=== PATIENT | male | born 1955 | race Caucasian/White ===

== ENCOUNTER 2021-02-08 08:45 | Inpatient (IN) ==
[2021-02-08] MEDS ORDERED: morphine 4 MG/ML VIAL IV ONE (09:30)
[2021-02-08] MEDS ORDERED: ONDANSETRON 4 MG/2 ML VIAL IV ONE (09:30)
--- NOTE | 2021-02-08 09:35 | Emergency Department Note ---
Male Urogenital HPI General Chief complaint: Urogenital-Male Stated complaint: Hematuria Time Seen by Provider: 02/08/21 09:07 Source: patient and family Mode of arrival: wheelchair Limitations: no limitations History of Present Illness HPI Narrative: Narrative: Presents from T7 for evaluation of bladder pain and he maturia. The patient initially had cystoscopy on 01/16/2021 at outside facility. The patient had done well postoperatively until 2 days ago when he developed pain and hematuria. He initially was seen at the clinic and submitted a urine sample but is unsure as to what the next plan was. The patient was seen in the emergency department at [facility] last night. At that time a three-way catheter with hand irrigation was placed. The patient was discharged home. He returns now after contacting the urologist office and being advised to come to the emergency department for further evaluation. He denies any fevers or chills. No nausea or vomiting. Related Data Home Medications Medication Instructions Recorded Confirmed multivitamin 1 tab-cap PO QDAY tab 08/02/15 02/08/21 vit c-ascorbate Ca-ascorb sod PO 08/02/15 10/16/18 Previous Rx's Medication Instructions Recorded amlodipine 5 mg tablet 5 mg PO QDAY #90 tab 08/31/18 olmesartan 20 mg tablet 20 mg PO QDAY #90 tab 08/31/18 allopurinol 300 mg tablet 300 mg PO QDAY #90 tab 10/30/18 Allergies Allergy/AdvReac Type Severity Reaction Status Date / Time morphine AdvReac Mild Nausea Verified 02/08/21 08:56 Review of Systems ROS ROS Narrative: Narrative: All systems ED: reviewed and negative except as stated. 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) Colonic polyp (Chronic) 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) Medical History (Updated 02/08/21 @ 21:09 by Darci Yuan MD) Acute prostatitis Articular cartilage disorder involving shoulder region Chronic gouty arthropathy with tophus (tophi) 1991 Colonic polyp Hypertension, essential Rotator cuff (capsule) sprain and strain Right Umbilical hernia Surgical History H/O colonoscopy (02/18/13) Micro: Polyps; Consult Findings: Colonic Polyps Family History Unknown No pertinent family history Father Malignant neoplasm of prostate Heart failure Mother Small cell carcinoma of lung Sister Malignant neoplasm of ovary Social History Smoking Status: Light tobacco smoker Exam Narrative Narrative: Narrative: General Limitations: no limitations General appearance: Present alert and in no apparent distress Head Head: Present atraumatic, normocephalic and normal inspection Eye Eye: Present normal appearance and EOMI; Absent conjunctival injection ENT ENT: Present normal exam and mucous membranes moist Neck Neck: Present normal inspection and trachea midline Respiratory Respiratory: Present normal lung sounds bilaterally; Absent respiratory distress Cardiovascular Cardiovascular: Present regular rate, normal rhythm and normal heart sounds Adbominal Abdominal: Present soft; Absent distention, tenderness, guarding and rebound : Present normal inspection and other (Indwelling 16 Armenian three-way catheter with mild to moderate amount of gross blood in the tube) Extremities Extremities: Present normal inspection; Absent tenderness Back Back: Present normal inspection; Absent tenderness Neurological Neurological: Present alert, oriented X3 and CN II-XII intact; Absent motor sensory deficit Psychiatric Psychiatric: Present normal affect and normal mood Skin Skin: Present warm (WNL) and dry; Absent rash Course Vital Signs Vital signs: Vital Signs Temperature 97.2 F 02/08/21 08:46 Pulse Rate 113 H 02/08/21 08:46 Respiratory Rate 18 02/08/21 08:46 Blood Pressure 122/74 02/08/21 08:46 Pulse Oximetry (%) 99 02/08/21 08:46 Temperature 98.1 F 02/08/21 20:00 Pulse Rate 116 H 02/08/21 20:46 Respiratory Rate 16 02/08/21 20:00 Blood Pressure 138/81 02/08/21 20:00 Pulse Oximetry (%) 94 02/08/21 20:00 MDM MDM Narrative Medical decision making narrative: Narrative: On arrival I have obtained and reviewed the patient's medical record from the ER visit earlier this morning as well as his cystoscopy on 01/16/2021. I have reviewed the path report. I discussed the case with Dr. Donaldson who has been to the emergency department to evaluate the patient. Lab Data Result diagrams: 02/08/21 09:37 02/08/21 09:37 Labs: Lab Results 02/08/21 02/08/21 02/08/21 Range/Units 09:37 09:37 09:37 WBC 12.4 H (4.5-11.0) K/mcL RBC 4.09 L (4.50-5.90) M/mcL Hgb 12.4 L (13.5-16.5) g/dL Hct 37.0 L (41.0-55.0) % POC Hct (41-55) % MCV 90.5 (80.0-100.0) fL MCH 30.3 (26.0-34.0) pg MCHC 33.5 (31.0-36.0) g/dL RDW 13.2 (11.5-14.5) % Plt Count 282 (140-440) K/mcL MPV 8.6 (7.4-10.4) fL Neut % (Auto) 78.2 H (38.0-78.0) % Lymph % (Auto) 14.7 L (15.0-49.0) % [place] % (Auto) 6.6 (1.0-12.0) % Eos % (Auto) 0.3 (0.0-7.0) % Baso % (Auto) 0.2 (0.0-2.0) % Lymph # (Auto) 1.82 (1.50-4.80) K/mcL [place] # (Auto) 0.82 (0.10-0.90) K/mcL Eos # (Auto) 0.04 (0.00-0.70) K/mcL Baso # (Auto) 0.03 (0.00-0.20) K/mcL Absolute Neutrophils 9.67 H (1.80-8.00) K/mcL PT 12.4 (11.9-14.5) sec INR 0.9 (0.9-1.1) APTT 23.2 (20.0-37.0) sec POC Sodium (133-145) mEq/L Sodium 138 (133-145) mmol/L POC Potassium (3.3-5.1) mEql/L Potassium 4.8 (3.3-5.1) mmol/L POC Chloride (96-108) mEq/L Chloride 101 (96-108) mmol/L Carbon Dioxide 21 L (22-30) mmol/L POC Total CO2 (22-30) mmol/L Anion Gap 16.0 (8.0-16.0) POC BUN (6-20) mg/dL BUN 27 H (8-23) mg/dL Creatinine 1.3 H (0.7-1.2) mg/dL POC Creatinine (0.6-1.2) mg/dL GFR Calculation 58 Glucose 153 H (70-105) mg/dL POC Glucose (70-105) mg/dL Calcium 9.5 (8.6-10.4) mg/dL POC WB Ioniz Calcium (1.16-1.32) mmEq/L Total Bilirubin 0.2 (0.1-1.0) mg/dL AST 20 (<40) U/L ALT 35 (<40) U/L Alkaline Phosphatase 83 (39-117) U/L Total Protein 7.2 (5.9-8.4) gm/dL Albumin 4.9 (3.2-5.2) gm/dL Globulin 2.3 (2.2-3.7) gm/dL Albumin/Globulin Ratio 2.1 (1.0-2.3) 02/08/21 Range/Units 14:33 WBC (4.5-11.0) K/mcL RBC (4.50-5.90) M/mcL Hgb (13.5-16.5) g/dL Hct (41.0-55.0) % POC Hct 29 L (41-55) % MCV (80.0-100.0) fL MCH (26.0-34.0) pg MCHC (31.0-36.0) g/dL RDW (11.5-14.5) % Plt Count (140-440) K/mcL MPV (7.4-10.4) fL Neut % (Auto) (38.0-78.0) % Lymph % (Auto) (15.0-49.0) % [place] % (Auto) (1.0-12.0) % Eos % (Auto) (0.0-7.0) % Baso % (Auto) (0.0-2.0) % Lymph # (Auto) (1.50-4.80) K/mcL [place] # (Auto) (0.10-0.90) K/mcL Eos # (Auto) (0.00-0.70) K/mcL Baso # (Auto) (0.00-0.20) K/mcL Absolute Neutrophils (1.80-8.00) K/mcL PT (11.9-14.5) sec INR (0.9-1.1) APTT (20.0-37.0) sec POC Sodium 137 (133-145) mEq/L Sodium (133-145) mmol/L POC Potassium 5.4 H (3.3-5.1) mEql/L Potassium (3.3-5.1) mmol/L POC Chloride 112 H (96-108) mEq/L Chloride (96-108) mmol/L Carbon Dioxide (22-30) mmol/L POC Total CO2 17 L (22-30) mmol/L Anion Gap (8.0-16.0) POC BUN 27 H (6-20) mg/dL BUN (8-23) mg/dL Creatinine (0.7-1.2) mg/dL POC Creatinine 1.2 (0.6-1.2) mg/dL GFR Calculation Glucose (70-105) mg/dL POC Glucose 154 H (70-105) mg/dL Calcium (8.6-10.4) mg/dL POC WB Ioniz Calcium 1.04 L (1.16-1.32) mmEq/L Total Bilirubin (0.1-1.0) mg/dL AST (<40) U/L ALT (<40) U/L Alkaline Phosphatase (39-117) U/L Total Protein (5.9-8.4) gm/dL Albumin (3.2-5.2) gm/dL Globulin (2.2-3.7) gm/dL Albumin/Globulin Ratio (1.0-2.3) ED POC Tests ED POC Tests: GERARD - SARS Antigen Negative Discharge Plan Patient/Caregiver Discharge Instructions Pt seen by NETWORKER/PA only: No Clinical Impression: Hematuria Patient Disposition: Xfer As Outpt/Obs ([facility]) Condition: Good Discharge Date/Time: 02/08/21 10:29
--- NOTE | 2021-02-08 10:04 | General Surgery Progress Note ---
SUBJECTIVE Subjective Patient information: Note initiated : 02/08/21 at 9:56 am Service Date, if different from initiated Date: [] Patient: Brannon Frances 65 y/o M admitted on for Hematuria. Chief Complaint: [] Interval history: Patient is a 65-year-old white male presented to [facility] emergency room and subsequently to [facility] emergency room with intractable gross hematuria with clot retention and Melendez catheter in place. Patient's had significant history of bladder biopsy and fulguration on 16 January through urology at [facility] with benign findings albeit chronic lymphatic inflammatory changes. Patient had no significant complications until 2 days ago when after golfing had gross hematuria with clots and subsequent clot retention. Patient presented to [facility] for irrigation and placement of a three-way catheter which is persistently now being clogged and causing urinary retention. Patient presents to the emergency room at our facility with 16 Georgian catheter clotted off and ultrasound with retention and likely clot formation present. Patient remains in significant distress secondary to same with no drainage from the Melendez after irrigation. 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 Patient has no prior bleeding or clot medical history. Constitutional Vitals: Vital Signs Temp Pulse Resp BP Pulse Ox 97.2 F 113 H 18 101/79 97 02/08/21 08:46 02/08/21 09:22 02/08/21 08:46 02/08/21 09:22 02/08/21 09:22 Period Temp Pulse Resp BP Sys/Bean Pulse Ox Last 24 Hr 97.2 F 110-114 18 101-122/74-79 96-99 Intake and Output 02/07/21 02/08/21 02/08/21 21:59 05:59 13:59 Weight 210 lb Patient Weight 02/09/21 05:59 Weight 210 lb Intake & Output: Intake & Output 02/07/21 02/08/21 02/08/21 21:59 05:59 13:59 Weight 210 lb Additional findings Additional findings: Patient seen in emergency room #7 and noted to be in significant discomfort with Melendez catheter in place clotted off with blood in the tubing clotted as well. HEENT within normal months Back minimal CVA tenderness Abdomen suprapubic tenderness noted to palpation. Chest normal breath sounds and diaphragmatic excursion Cardiac regular rhythm normal phallus and testes Musculoskeletal grossly normal Patient with moderate central obesity noted A/P Narrative A/P Narrative: Assessment: Likely clot retention status post bladder biopsy and fulguration elsewhere and secondary bleed. Etiology retention alone versus persistent bleed from bladder mucosal side and marked bladder spasticity. Plan: With failed irrigation we will proceed to cystoscopy and clot retention possible fulguration under anesthesia Patient and understand plan will proceed as consented Infection possible and will continue antibiotic regimen pending urine culture results from [facility] yesterday when available Time Spent With Patient Time: Total time spent is greater than 50% in coordination of care (as documented) at patient's floor/unit and/or counseling patient:
[2021-02-08 10:18] LABS: Basophils # (Auto) 0.03 K/mcL (0.00-0.20); Basophils % (Auto) 0.2 % (0.0-2.0); Eosinophils # (Auto) 0.04 K/mcL (0.00-0.70); Eosinophils % (Auto) 0.3 % (0.0-7.0); Hemoglobin 12.4 g/dL (13.5-16.5); Lymphocytes # (Auto) 1.82 K/mcL (1.50-4.80); Lymphocytes % (Auto) 14.7 % (15.0-49.0); Mean Cell Volume 90.5 fL (80.0-100.0); Mean Corpuscular HGB Conc 33.5 g/dL (31.0-36.0); Mean Platelet Volume 8.6 fL (7.4-10.4); Monocytes # (Auto) 0.82 K/mcL (0.10-0.90); Monocytes % (Auto) 6.6 % (1.0-12.0); Neutrophils % (Auto) 78.2 % (38.0-78.0); Platelet Count 282 K/mcL (140-440); RBC 4.09 M/mcL (4.50-5.90); Red Cell Distribution Width 13.2 % (11.5-14.5); WBC 12.4 K/mcL (4.5-11.0)
[2021-02-08] MEDS ORDERED: KETAMINE 50 MG/ML ML ONE (10:34)
[2021-02-08] MEDS ORDERED: PHENYLEPHRINE 10 MG/ML VIAL ONE (10:34)
[2021-02-08] MEDS ORDERED: ROCURONIUM 10 MG/ML ML IV ONE (10:34)
[2021-02-08] MEDS ORDERED: ONDANSETRON 4 MG/2 ML VIAL ONE (10:34)
[2021-02-08] MEDS ORDERED: LIDOCAINE HCL/PF 100 MG/5 ML SYRINGE IV ONE (10:34)
[2021-02-08] MEDS ORDERED: MIDAZOLAM 2 MG/2 ML VIAL ONE (10:34)
[2021-02-08] MEDS ORDERED: fentaNYL 100 MCG/2 ML VIAL IV ONE (10:34)
[2021-02-08] MEDS ORDERED: GLYCOPYRROLATE 0.2 MG/ML VIAL IV ONE (10:34)
[2021-02-08] MEDS ORDERED: SUCCINYLCHOLINE 20 MG/ML ML IV ONE (10:34)
[2021-02-08] MEDS ORDERED: SUGAMMADEX SODIUM 200 MG/2 ML VIAL IV ONE (10:34)
[2021-02-08] MEDS ORDERED: ALBUMIN HUMAN 25 GM/100 ML BAG IV ONE ×2 (10:34→11:59)
[2021-02-08] MEDS ORDERED: PROPOFOL 200 MG/20 ML VIAL IV ONE (10:34)
[2021-02-08 10:38] LABS: ALT/SGPT 35 U/L (<40); AST/SGOT 20 U/L (<40); Albumin 4.9 gm/dL (3.2-5.2); Albumin/Globulin Ratio 2.1 (1.0-2.3); Alkaline Phosphatase 83 U/L (39-117); Bilirubin,Total 0.2 mg/dL (0.1-1.0); Blood Urea Nitrogen 27 mg/dL (8-23); Calcium 9.5 mg/dL (8.6-10.4); Carbon Dioxide 21 mmol/L (22-30); Chloride 101 mmol/L (96-108); Globulin 2.3 gm/dL (2.2-3.7); Glomerular Filtration Rate 58; Glucose 153 mg/dL (70-105)
[2021-02-08 10:44] LABS: INR 0.9 (0.9-1.1); Partial Thromboplastin Time 23.2 sec (20.0-37.0); Prothrombin Time 12.4 sec (11.9-14.5)
[2021-02-08] MEDS ORDERED: ceFAZolin 2 GM in DEXTROSE 5% IN WATER 50 ML IV SCH (10:45)
[2021-02-08] MEDS ORDERED: IOVERSOL 20 ML VIAL IJ ONE (11:12)
[2021-02-08] MEDS ORDERED: METOPROLOL TARTRATE 5 MG/5 ML VIAL IV PRN (12:19)
[2021-02-08] MEDS ORDERED: fentaNYL 100 MCG/2 ML VIAL IV PRN (12:19)
[2021-02-08] MEDS ORDERED: HYDROmorphone 0.5 MG/0.5 ML SYRINGE IV PRN (12:19)
[2021-02-08] MEDS ORDERED: ePHEDrine 50 MG/ML AMPUL IV PRN (12:19)
[2021-02-08] MEDS ORDERED: PROMETHAZINE 25 MG/ML VIAL IV PRN (12:19)
[2021-02-08] MEDS ORDERED: ACETAMINOPHEN 1,000 MG/100 ML BAG IV ONE (12:19)
[2021-02-08] MEDS ORDERED: diphenhydrAMINE 50 MG/ML VIAL IV PRN (12:19)
[2021-02-08] MEDS ORDERED: METHOCARBAMOL 1,000 MG/10 ML VIAL IV PRN (12:19)
[2021-02-08] MEDS ORDERED: ATROPINE SULFATE 0.4 MG/ML VIAL IV PRN (12:19)
[2021-02-08] MEDS ORDERED: ONDANSETRON 4 MG/2 ML VIAL IV PRN (12:19)
[2021-02-08] MEDS ORDERED: IPRATROPIUM/ALBUTEROL 3 ML AMPUL.NEB NEB PRN (12:19)
[2021-02-08] MEDS ORDERED: LIDOCAINE W/EPI 1% 20 ML VIAL IJ ONE (12:25)
[2021-02-08] MEDS ORDERED: LACTATED RINGERS 1,000 ML IV SCH (12:30)
--- NOTE | 2021-02-08 14:07 | Operative Note ---
Operative Note Operative Note: Operation report--date of service 08 February 2021 Preop diagnosis: Clot retention status post surgery elsewhere Postop diagnosis: Clot retention with bladder perforation intraperitoneal Procedure: Cystoscopy attempted clot evacuation and subsequent closure open cystotomy and peritoneal irrigation and evacuation Surgeon: Dr. Monty Donaldson Anesthesia: LAUREN [place]--type General Additional procedure: Intraoperative cystogram Drains 24 Guyanese three-way Melendez catheter to straight drainage and 10 Guyanese preperitoneal drain Obi-Andrea type Description after adequate induction of general anesthesia patient prepped and draped in the dorsolithotomy position and timeout performed patient had cystoscopy performed in evacuation of initial clot copious amount performed with continuation of difficult irrigation and persistent clot. A 22 Guyanese three-way Melendez catheter was utilized to perform cystogram and no distinct extravasation was noted however there were some irregular edges consistent with possible extravasation. Patient's exam however demonstrated increasingly tense abdomen and he was deemed necessary to proceed with open evaluation and treatment. Patient had reprepping in the supine position and patient had 20 cc of 1% Marcaine or lidocaine with epinephrine instilled in the midline incision line patient had the incision carried down through the midline fascia and significant edematous changes were noted in the preperitoneal and infra pubic space. Patient had a cystotomy performed and marked clot was evacuated greater than for size. Evaluation of the bladder after clearing of clot demonstrated longitudinal rupture in the posterior bladder with peritoneal fat noted and edges were identified with some difficulty stay sutures were placed with 2-0 chromic and the posterior tear which was approximately 5 cm long was closed with 2 rows of continuous interlocking 2-0 Vicryl suture the anterior cystotomy incision was closed with 2 rows of 2-0 Vicryl suture and bladder irrigation was performed demonstrating no leak. Patient had markedly tense peritoneum again noted and a decision was made to drain the intraperitoneal fluid through a lower midline peritoneal incision clots as well as normal saline instilled effluent was recovered somewhat more than 2 L with the pool suction. The peritoneum was closed with 2-0 Vicryl and a Obi-Andrea drain was placed in the preperitoneal space brought out through the right lower abdominal abdomen her anterior abdomen and sutured with 3-0 nylon the midline incision was closed with looped 0 PDS and subcutaneous closed closed with interrupted 2-0 chromic and subsequently for subcuticular viral Vicryl skin closure was accomplished the Dermabond mesh was placed on the incision and patient was returned to recovery room with good output by Melendez catheter noted.
[2021-02-08] MEDS ORDERED: HYDROcodone/APAP 5/325MG TABLET PO PRN (14:08)
[2021-02-08] MEDS ORDERED: ONDANSETRON 4 MG ODT TABLET SL PRN (14:08)
[2021-02-08] MEDS ORDERED: DEXTROSE 5%-NS 1,000 ML IV SCH (14:15)
[2021-02-08] MEDS: MEPERIDINE 25 MG/ML VIAL IV PRN ×2 (14:24→14:29)
[2021-02-08 14:50] LABS: POC Blood Urea Nitrogen 27 mg/dL (6-20); POC CO2 17 mmol/L (22-30); POC Calcium, Ionized 1.04 mmEq/L (1.16-1.32); POC Chloride 112 mEq/L (96-108); POC Creatinine 1.2 mg/dL (0.6-1.2); POC Glucose, Random 154 mg/dL (70-105); POC Hematocrit 29 % (41-55); POC Potassium 5.4 mEql/L (3.3-5.1); POC Sodium 137 mEq/L (133-145)
--- NOTE | 2021-02-08 18:43 | XRay Report ---
INDICATION: cystoscopy TECHNIQUE: 0.2 minutes fluoroscopy utilized. Intraoperative spot films obtained. COMPARISON: None. FINDINGS: There is contrast material within the urinary bladder. There is contrast extravasation which appears to be arising from the dome of the bladder. This may be intraperitoneal. There is a filling defect or filling defects within the bladder. Filling defects could be related to an organized hematoma but neoplasm is possible. IMPRESSION: 1. Contrast extravasation from the bladder appears to be intraperitoneal 2. Large filling defects within the urinary bladder may be neoplastic. Interpreted and Authenticated by: Ad Lazo 02/08/21
[2021-02-08] MEDS: ceFAZolin 1 GM VIAL IV SCH (19:38)
[2021-02-08] MEDS: 0.9 % SODIUM CHLORIDE 10 ML SYRINGE IV SCH (20:52)
--- NOTE | 2021-02-08 20:58 | General Surgery Progress Note ---
SUBJECTIVE Subjective Patient information: Note initiated : 02/08/21 at 8:55 pm Service Date, if different from initiated Date: [] Patient: Brannon Frances 65 y/o M admitted on 02/08/21 for Hematuria. Chief Complaint: [] Interval history: Called to see patient for abdominal distention and increased heart rate Constitutional Vitals: Vital Signs Temp Pulse Resp BP Pulse Ox 98.1 F 116 H 16 138/81 94 02/08/21 20:00 02/08/21 20:46 02/08/21 20:00 02/08/21 20:00 02/08/21 20:00 Period Temp Pulse Resp BP Sys/Bean Pulse Ox Last 24 Hr 96.0 F-98.1 F 95-125 12-19 101-156/48-84 93-100 Intake and Output 02/08/21 02/08/21 02/08/21 05:59 13:59 21:59 Intake Total 50 2650 Output Total 380 Balance 50 2270 Weight 210 lb 224 lb Patient Weight 02/09/21 05:59 Weight 224 lb Intake & Output: Intake & Output 02/08/21 02/08/21 02/08/21 05:59 13:59 21:59 Intake Total 50 2650 Output Total 380 Balance 50 2270 Weight 210 lb 224 lb Intake: IV 50 100 Ancef 2 gm In Dextrose 5% in 50 Water 50 ml @ 100 mls/hr IV PREOP [facility] Rx#:[id number] IV - Manual Only 2550 Output: Drainage 30 Right Lower Abdomen 30 Urine Catheter Amount 350 Other: Urine Appearance Clear Urine Color Bright Red Uretheral (Melendez) [place] Additional findings Additional findings: Patient had a mild discomfort with abdominal distention compared to this morning patient had some mild nausea noted he has been eating Pulse rate elevated but remainder vital signs normal Patient afebrile Abdomen distended with high-pitched infrequent bowel sounds No rebound tenderness Urine output remains yellow and catheter draining well A/P Narrative A/P Narrative: Assessment: likely ileus and plan upright KUB as well as repeat hematocrit hemoglobin now and in the morning Pending results of above keep n.p.o. for possible place NG tube incision with some mild drainage doubtful peritoneal leak Time Spent With Patient Time: Total time spent is greater than 50% in coordination of care (as documented) at patient's floor/unit and/or counseling patient:
[2021-02-08] MEDS: DEXTROSE 5%-NS 1,000 ML IV SCH (21:28)
[2021-02-08 21:31] LABS: Hematocrit 28.4 % (41.0-55.0); Hemoglobin 9.7 g/dL (13.5-16.5)
[2021-02-08] MEDS: BENZOCAINE 1 SPRAY BOTTLE TOPICAL PRN (22:18)
[2021-02-08] MEDS: HYDROmorphone 0.5 MG/0.5 ML SYRINGE IV PRN (22:19)
[2021-02-09] MEDS: ceFAZolin 1 GM VIAL IV SCH ×3 (03:32→19:12)
[2021-02-09] MEDS: BENZOCAINE 1 SPRAY BOTTLE TOPICAL PRN (03:45)
[2021-02-09] MEDS: DEXTROSE 5%-NS 1,000 ML IV SCH ×3 (03:56→22:13)
[2021-02-09] MEDS: HYDROmorphone 0.5 MG/0.5 ML SYRINGE IV PRN ×3 (04:40→15:05)
[2021-02-09] MEDS: 0.9 % SODIUM CHLORIDE 10 ML SYRINGE IV SCH ×3 (04:41→20:44)
--- NOTE | 2021-02-09 05:45 | XRay Report ---
INDICATION: post op abd distention TECHNIQUE: Supine and upright abdomen. COMPARISON: None FINDINGS:There is a surgical drain within the pelvis. There is gas and fecal material within the colon. There is mildly prominent gas-filled small bowel in the left side of the abdomen. Bowel gas pattern is nonspecific. This may be mild postoperative ileus. There is prominent pneumoperitoneum. This is presumably postsurgical. There is no biliary or portal venous gas. No pneumatosis. No other focal abnormality. No pathologic calcifications. IMPRESSION: 1. Surgical drain within the pelvis. Postoperative pneumoperitoneum 2. Bowel gas pattern is nonspecific. Mild postoperative ileus is possible Interpreted and Authenticated by: Ad Lazo 02/09/21
--- NOTE | 2021-02-09 05:49 | XRay Report ---
INDICATION: confirm NG tube placement TECHNIQUE: Supine abdomen. COMPARISON: Previous plain film examination dated 02/08/2021 at 2109 FINDINGS:Placement of an esophagogastric tube with its tip in the proximal stomach. There continues to be gas within small and large bowel. Bowel gas pattern remains nonspecific. Postoperative pneumoperitoneum is not visible on this supine radiograph Examination was initially interpreted by [facility] IMPRESSION: Esophagogastric tube in the proximal stomach Interpreted and Authenticated by: Ad Lazo 02/09/21
[2021-02-09 07:20] LABS: Hematocrit 27.1 % (41.0-55.0); Hemoglobin 8.9 g/dL (13.5-16.5); Mean Cell Volume 91.6 fL (80.0-100.0); Mean Corpuscular HGB Conc 32.8 g/dL (31.0-36.0); Mean Platelet Volume 8.8 fL (7.4-10.4); Platelet Count 205 K/mcL (140-440); RBC 2.96 M/mcL (4.50-5.90); Red Cell Distribution Width 13.7 % (11.5-14.5); WBC 9.9 K/mcL (4.5-11.0)
[2021-02-09 07:39] LABS: Blood Urea Nitrogen 13 mg/dL (8-23); Calcium 8.6 mg/dL (8.6-10.4); Carbon Dioxide 23 mmol/L (22-30); Chloride 110 mmol/L (96-108); Glomerular Filtration Rate 95; Glucose 152 mg/dL (70-105)
--- NOTE | 2021-02-09 07:39 | General Surgery Progress Note ---
SUBJECTIVE Subjective Patient information: Note initiated : 02/09/21 at 7:33 am Service Date, if different from initiated Date: [] Patient: Brannon Frances 65 y/o M admitted on 02/08/21 for Hematuria. Chief Complaint: [] Interval history: Patient with persistent pain and abdominal swelling despite NG tube drainage Urine output remains adequate Patient remains n.p.o. Constitutional Vitals: Vital Signs Temp Pulse Resp BP Pulse Ox 98.1 F 114 H 17 132/69 92 02/09/21 07:11 02/09/21 07:11 02/09/21 07:11 02/09/21 07:11 02/09/21 07:11 Period Temp Pulse Resp BP Sys/Bean Pulse Ox Last 24 Hr 96.0 F-98.2 F 95-125 12-19 101-156/48-84 92-100 Intake and Output 02/08/21 02/09/21 02/09/21 21:59 05:59 13:59 Intake Total 2948 702 Output Total 3480 1999 Balance -532 -1298 Weight 224 lb Intake & Output: Intake & Output 02/08/21 02/09/21 02/09/21 21:59 05:59 13:59 Intake Total 2948 702 Output Total 3480 1999 Balance -532 -1298 Weight 224 lb Intake: IV 398 702 Dextrose 5%-Ns IV Solution 1, 298 702 000 ml @ 75 mls/hr IV .[id number] [facility] Rx#:[id number] IV - Manual Only 2550 Output: Gastric Drainage 100 Left Nare NG/OG 100 Drainage 30 Right Lower Abdomen 30 Drainage 100 100 Right Lower Abdomen 100 100 Urine Catheter Amount 3350 1800 Other: Meal Nourishment/Supplement Percent of Meal Consumed 100% Nourishment/Supplement name applesauce Urine Appearance Clear Clear Clear Uretheral (Melendez) Clear Clear Urine Color [place] Uretheral (Melendez) [place] Urine Odor Normal Normal Normal Uretheral (Melendez) Normal Additional findings Additional findings: Patient with moderate distress secondary to abdominal distention and discomfort NG tube in place draining low amounts of output Abdomen distended with persistent tenderness and rare high-pitched bowel sounds minimal ecchymosis and adequate urine output mildly l pink tinged urine A/P Narrative A/P Narrative: Assessment: Abdominal distention post bladder rupture with decreased hemoglobin to 8.9 and concern for intra-abdominal etiology additionally Bladder decompression appears adequate and output with minimal bleeding History pending Plan: CT abdomen pelvis evaluation DEONTE Draw type and cross General surgery consultation is 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 Victor M Miller Time Spent With Patient Time: Total time spent is greater than 50% in coordination of care (as documente d) at patient's floor/unit and/or counseling patient:
[2021-02-09] MEDS ORDERED: 0.9 % SODIUM CHLORIDE 250 ML IV SCH (07:45)
[2021-02-09] MEDS ORDERED: IOPAMIDOL 125 ML BOTTLE IV ONE (08:43)
[2021-02-09] MEDS ORDERED: ACETAMINOPHEN 1,000 MG/100 ML BAG IV PRN (10:13)
--- NOTE | 2021-02-09 10:40 | General Surgery Consult Note ---
HPI Data of Consult Consult date: 02/09/21 Requesting physician: Madan Donaldson Primary Care Provider: Preston Rangel Consult Narrative Patient Information: Note initiated : 02/09/21 at 10:39 am Service Date, if different from initiated Date: [] Patient: Brannon Frances 65 y/o M admitted on 02/08/21 for Hematuria. Chief Complaint: [] Chief complaint: Abdominal distention cc:: 65-year-old male who is seen for evaluation of suspected adynamic ileus status post open cystotomy with drainage of clot and drainage of peritoneum with evacuation of clot. The patient had the bladder fulguration and biopsy at [facility] on 16 January. According to history he did well over the next 3 weeks but on 05 February developed hematuria and clot retention. He was seen in the emergency room at [facility] and a trial of bladder irrigation was carried out but was unsuccessful. He was referred to our hospital where evaluation revealed massive clot in the bladder with no drainage from the Melendez. A cystoscopy was attempted but was unsuccessful so open cystotomy with evacuation of clot was carried out along with drainage of 2 L of peritoneal fluid and clot. The patient was noted to have about a 5 cm rupture of the dome of the bladder posteriorly. This was closed in the peritoneum was drained with a Obi-Andrea catheter. Patient had significant ileus preprocedure and this has continued. He had a trial at feeding but could not tolerate it. Abdominal x-rays revealed small amount of intraperitoneal air but otherwise no major findings. A CT was done and this shows that there is no clot in the bladder and there is no extravasation. There is a small amount of free air beneath the diaphragm which is not unusual in the immediate postop. The patient complains of significant abdominal distention with inability to pass flatus with associated nausea. His immediate postprocedure hemoglobin was 9.7 and his hemoglobin this morning is 8.9. There is only a small amount of drainage in his nasogastric tube. The Melendez catheter has slight pink-tinged but otherwise good urine volume and the GEOFFREY drain has serosanguineous thin fluid. There is no evidence of bilious drainage. Patient has been seen primarily to rule out other with sources of intestinal distention and or adynamic ileus CC: Madan Donaldson MD Review of Systems All systems: reviewed and no additional remarkable complaints except as stated PFSH PFSH All Active Problems (Updated 02/09/21 @ 10:53 by Flores Miller MD) Acute blood loss as cause of postoperative anemia (Acute) Ruptured bladder with uroperitoneum (Acute) Adynamic ileus (Acute) Ileus (Acute) Acute prostatitis (Acute) Hematuria (Acute) Pyuria (Acute) Acute bacterial rhinosinusitis (Chronic) Hemospermia (Acute) Actinic keratosis of right cheek (Chronic) Actinic keratosis of left side of forehead (Acute) Granuloma faciale (Acute) Umbilical hernia (Chronic) H/O colonoscopy (Chronic 02/18/13) Rotator cuff (capsule) sprain and strain (Chronic) Hypertension, essential (Chronic) 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) Colonic polyp (Chronic) 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) Medical History Acute prostatitis Articular cartilage disorder involving shoulder region Chronic gouty arthropathy with tophus (tophi) 1992 Colonic polyp Hypertension, essential Ileus Rotator cuff (capsule) sprain and strain Right Umbilical hernia Surgical History H/O colonoscopy (02/18/13) Micro: Polyps; Consult Findings: Colonic Polyps Family History Unknown No pertinent family history Father Malignant neoplasm of prostate Heart failure Mother Small cell carcinoma of lung Sister Malignant neoplasm of ovary MEDS/ALLERGIES Home Medications and Allergies Home Medications Medication Instructions Recorded Confirmed Type multivitamin 1 tab-cap PO QDAY tab 08/02/15 02/08/21 History amlodipine 5 mg tablet 5 mg PO QDAY #90 tab 08/31/18 02/08/21 Rx olmesartan 20 mg tablet 20 mg PO QDAY #90 tab 08/31/18 02/08/21 Rx allopurinol 300 mg PO BID 02/08/21 02/08/21 History dicyclomine 20 mg PO QDAY 02/08/21 02/08/21 History naproxen sodium [Aleve] 220 mg PO BID 02/08/21 02/08/21 History nortriptyline 10 mg PO QDAY 02/08/21 02/08/21 History ascorbic acid (vitamin C) 1,000 mg PO QDAY 02/09/21 02/09/21 History Allergies Allergy/AdvReac Type Severity Reaction Status Date / Time morphine AdvReac Mild Nausea Verified 02/08/21 08:56 Physical Examination Vital Signs Vital signs: Temp Pulse Resp BP Pulse Ox 98.1 F 114 H 17 132/69 92 02/09/21 07:11 02/09/21 07:11 02/09/21 07:11 02/09/21 07:11 02/09/21 07:11 General physical appearance General physical exam: well developed, well nourished, moderate distress, moderate pain and obese Eyes Eye exam: PERRL and normal ocular movement ENT ENT exam: normal nares, normal mucosa and no hearing loss Head Head exam IM: Present atraumatic, normal inspection and normocephalic Neck Neck exam: no masses, no bruits, trachea midline, no lymphadenopathy and no venous distension Cardiovascular Cardiovascular exam IM: Present normal rate and rhythm, RRR, +S1 and +S2; Absent gallop and JVD Respiratory Respiratory exam: normal expansion, normal respiratory effort, clear to auscultation and other Abdomen Abdomen: Present tender (Diffusely tender in upper and lower abdomen), bowel sounds (Hypoactive bowel sounds), surgical scars (Well-healed lower midline surgical scar), guarding (Mild guarding diffusely) and distended (Diffuse distention) Genitourinary Genitourinary (Male): Present other (Melendez catheter in place) Neurologic Neurologic: Present normal coordination and normal sensation Musculoskeletal Musculoskeletal: Present normal gait and normal posture Psychiatric Psychiatric: Present oriented to time, oriented to person, oriented to place, speech is normal and memory intact Results Labs Result diagrams: 02/09/21 05:07 02/09/21 05:07 Labs: Abnormal lab results 02/08/21 02/08/21 02/09/21 Range/Units 14:33 21:00 05:07 RBC 2.96 L (4.50-5.90) M/mcL Hgb 9.7 L 8.9 L (13.5-16.5) g/dL Hct 28.4 L 27.1 L (41.0-55.0) % POC Hct 29 L (41-55) % POC Potassium 5.4 H (3.3-5.1) mEql/L POC Chloride 112 H (96-108) mEq/L Chloride (96-108) mmol/L POC Total CO2 17 L (22-30) mmol/L POC BUN 27 H (6-20) mg/dL Glucose (70-105) mg/dL POC Glucose 154 H (70-105) mg/dL POC WB Ioniz Calcium 1.04 L (1.16-1.32) mmEq/L 02/09/21 Range/Units 05:07 RBC (4.50-5.90) M/mcL Hgb (13.5-16.5) g/dL Hct (41.0-55.0) % POC Hct (41-55) % POC Potassium (3.3-5.1) mEql/L POC Chloride (96-108) mEq/L Chloride 110 H (96-108) mmol/L POC Total CO2 (22-30) mmol/L POC BUN (6-20) mg/dL Glucose 152 H (70-105) mg/dL POC Glucose (70-105) mg/dL POC WB Ioniz Calcium (1.16-1.32) mmEq/L Diabetes panel 02/09/21 Range/Units 05:07 Sodium 143 (133-145) mmol/L Potassium 4.1 (3.3-5.1) mmol/L Chloride 110 H (96-108) mmol/L Carbon Dioxide 23 (22-30) mmol/L BUN 13 (8-23) mg/dL Creatinine 0.8 (0.7-1.2) mg/dL Glucose 152 H (70-105) mg/dL Calcium 8.6 (8.6-10.4) mg/dL Calcium panel 02/09/21 Range/Units 05:07 Calcium 8.6 (8.6-10.4) mg/dL Pituitary panel 02/09/21 Range/Units 05:07 Sodium 143 (133-145) mmol/L Potassium 4.1 (3.3-5.1) mmol/L Chloride 110 H (96-108) mmol/L Carbon Dioxide 23 (22-30) mmol/L BUN 13 (8-23) mg/dL Creatinine 0.8 (0.7-1.2) mg/dL Glucose 152 H (70-105) mg/dL Calcium 8.6 (8.6-10.4) mg/dL Adrenal panel 02/09/21 Range/Units 05:07 Sodium 143 (133-145) mmol/L Potassium 4.1 (3.3-5.1) mmol/L Chloride 110 H (96-108) mmol/L Carbon Dioxide 23 (22-30) mmol/L BUN 13 (8-23) mg/dL Creatinine 0.8 (0.7-1.2) mg/dL Glucose 152 H (70-105) mg/dL Calcium 8.6 (8.6-10.4) mg/dL All other labs normal. A/P Assessment and plan (1) Adynamic ileus: Status: Acute (2) Ruptured bladder with uroperitoneum: Status: Acute (3) Acute blood loss as cause of postoperative anemia: Status: Acute Narrative A/P Narrative: The patient's present clinical condition is more suggestive of adynamic ileus associated with his operative procedures and peritoneal washout. There is no evidence of ongoing bleeding at this time. The change in hemoglobin from last evening until today is probably result of hemodilution and equilibration rather than actual blood loss. Recommend continuing with nasogastric suction and bowel rest Started on metoclopramide 10 mg IV every 6 hours Follow-up abdominal x-rays in the morning I will reevaluate tomorrow Time Spent With Patient Time: Total time spent is greater than 50% in coordination of care (as documented) at patient's floor/unit and/or counseling patient:
[2021-02-09] MEDS: ACETAMINOPHEN 1,000 MG/100 ML BAG IV SCH ×3 (11:01→23:25)
[2021-02-09] MEDS: METOCLOPRAMIDE 10 MG/2 ML VIAL IV SCH ×3 (11:31→23:25)
--- NOTE | 2021-02-09 15:15 | Cat Scan Report ---
INDICATION: post abdomen pain after bladder rupture TECHNIQUE:CT abdomen and pelvis before and following a timed bolus of hyperosmolar nonionic intravenous contrast media. Reformatted imaging included. COMPARISON: Prior cross-sectional imaging is not available. Uroradiographic images were obtained 08 February 2021. FINDINGS: Lung bases reveal dependent basilar atelectasis parenchymal scarring and subpleural thickening right greater than left. There is extensive free air under the right hemidiaphragm and throughout the peritoneal cavity compatible with recent urologic intervention. Partially visualized enteric tube follows the expected course of the esophagus below the level of the diaphragm terminating in the left upper quadrant of the abdomen and within the lumen of the stomach. Extensive fatty infiltration of the liver without intrahepatic mass. Incidental note is made of hepatisation of the gallbladder. No gallbladder wall thickening or pericholecystic fluid. Pancreas, spleen including splenule, adrenal glands, and gastric mucosa unremarkable. Kidneys demonstrate normal mixed corticomedullary nephrogenic phase of contrast excretion. Benign cortical cysts are seen bilaterally. Incidental note is made of bilateral perinephric fat stranding. Small bowel is nondilated partially fluid-filled. The large bowel reveals moderate stool retention involving the right colon. The descending colon is decompressed as is the rectosigmoid junction. Extensive colonic diverticulosis no diverticulitis. Surgical changes are seen in the ventral pelvic wall. There is a small fluid collection with nondependent gas. Fluid collection measures 2.5 x 1.93 cm on image 173 series 4. Could represent seroma or developing abscess. Surgical drains are seen in the inferior pelvis The urinary bladder is decompressed irregular in contour with dependent gas formation. There is a Melendez catheter in place. There is partial opacification of the urinary bladder from excreted intravenous contrast. No active extravasation is definitively identified on today's examination. Osseous structures: Mixed lytic sclerotic lesion in the left sacrum at the level of the sacroiliac joint. No other focal concerning osseous lesions. IMPRESSION: Abnormal appearance of the urinary bladder as described above without evidence of active extravasation of contrast media on today's examination. In numerable incidental findings detailed above. Interpreted and Authenticated by: Darian Palmer M.D. 02/09/21
[2021-02-09] MEDS: OPIUM/BELLADONNA ALKALOIDS 60 MG SUPP.RECT PR PRN ×2 (18:49→23:25)
[2021-02-10] MEDS: ceFAZolin 1 GM VIAL IV SCH ×3 (03:19→18:44)
[2021-02-10] MEDS: ACETAMINOPHEN 1,000 MG/100 ML BAG IV SCH ×2 (05:04→10:27)
[2021-02-10] MEDS: 0.9 % SODIUM CHLORIDE 10 ML SYRINGE IV SCH ×3 (05:05→21:21)
[2021-02-10] MEDS: METOCLOPRAMIDE 10 MG/2 ML VIAL IV SCH ×3 (05:05→17:32)
[2021-02-10] MEDS: DEXTROSE 5%-NS 1,000 ML IV SCH ×2 (05:41→07:55)
[2021-02-10 06:23] LABS: Basophils # (Auto) 0.03 K/mcL (0.00-0.20); Basophils % (Auto) 0.4 % (0.0-2.0); Eosinophils # (Auto) 0.17 K/mcL (0.00-0.70); Eosinophils % (Auto) 2.1 % (0.0-7.0); Hematocrit 27.9 % (41.0-55.0); Hemoglobin 9.2 g/dL (13.5-16.5); Lymphocytes # (Auto) 1.87 K/mcL (1.50-4.80); Lymphocytes % (Auto) 22.7 % (15.0-49.0); Mean Cell Volume 90.9 fL (80.0-100.0); Mean Platelet Volume 8.4 fL (7.4-10.4); Monocytes # (Auto) 0.83 K/mcL (0.10-0.90); Monocytes % (Auto) 10.1 % (1.0-12.0); Neutrophils % (Auto) 64.7 % (38.0-78.0); Platelet Count 187 K/mcL (140-440); RBC 3.07 M/mcL (4.50-5.90); Red Cell Distribution Width 13.4 % (11.5-14.5); WBC 8.3 K/mcL (4.5-11.0)
[2021-02-10] MEDS: HYDROmorphone 0.5 MG/0.5 ML SYRINGE IV PRN ×2 (06:26→18:40)
[2021-02-10 06:43] LABS: ALT/SGPT 22 U/L (<40); AST/SGOT 22 U/L (<40); Albumin 3.9 gm/dL (3.2-5.2); Albumin/Globulin Ratio 1.8 (1.0-2.3); Alkaline Phosphatase 65 U/L (39-117); Bilirubin,Total 0.4 mg/dL (0.1-1.0); Blood Urea Nitrogen 9 mg/dL (8-23); Calcium 8.8 mg/dL (8.6-10.4); Carbon Dioxide 26 mmol/L (22-30); Chloride 107 mmol/L (96-108); Globulin 2.2 gm/dL (2.2-3.7); Glomerular Filtration Rate 95; Glucose 107 mg/dL (70-105)
--- NOTE | 2021-02-10 07:56 | General Surgery Progress Note ---
SUBJECTIVE Subjective Patient information: Note initiated : 02/10/21 at 7:52 am Service Date, if different from initiated Date: [] Patient: Brannon Frances 65 y/o M admitted on 02/08/21 for Hematuria. Chief Complaint: [] Interval history: Patient much more comfortable today and vital signs stable Passing flatus and no nausea Patient's had good ambulation and urine remained clear with good output Obi-Andrea drain minimal drainage Constitutional Vitals: Vital Signs Temp Pulse Resp BP Pulse Ox 89.4 F L 100 H 16 144/78 92 02/10/21 06:43 02/10/21 06:43 02/10/21 06:43 02/10/21 06:43 02/10/21 06:43 Period Temp Pulse Resp BP Sys/Bean Pulse Ox Last 24 Hr 89.4 F-98.9 F 100-113 16-22 116-148/61-88 91-92 Intake and Output 02/09/21 02/10/21 02/10/21 21:59 05:59 13:59 Intake Total 1100 200 Output Total 1675 1660 Balance -575 -1460 Weight 207 lb 12.8 oz Intake & Output: Intake & Output 02/09/21 02/10/21 02/10/21 21:59 05:59 13:59 Intake Total 1100 200 Output Total 1675 1660 Balance -575 -1460 Weight 207 lb 12.8 oz Intake: IV 1100 200 Dextrose 5%-Ns IV Solution 1, 1000 000 ml @ 125 mls/hr IV .Q8H [facility] Rx#:[id number] Output: Gastric Drainage 260 100 Left Nare NG/OG 260 100 Drainage 15 10 Right Lower Abdomen 15 10 Urine Catheter Amount 1400 1550 Other: Urine Appearance Cloudy Clear Clear Small Blood Clots Uretheral (Melendez) Clear Clear Urine Color [place] Wayside Straw Wayside Uretheral (Melendez) Wayside Straw Wayside Urine Odor Normal Normal Normal Uretheral (Melendez) Normal Additional findings Additional findings: Patient comfortable and oriented with no acute distress Abdomen still somewhat distended but bowel sounds present and nontender Incision healing nicely and dry Obi-Andrea minimal drainage Chest breathing comfortably catheter in place draining clear urine A/P Narrative A/P Narrative: Assessment: Stable anemia with resolving ileus and bladder without persistent bleeding noted Doing well postoperatively with return of bowel function and stable hemodynamically Plan: Remove NG tube and start trial on clear liquids Continue ambulation Recheck labs tomorrow pending overall clinical status Time Spent With Patient Time: Total time spent is greater than 50% in coordination of care (as docaditya brandon) at patient's floor/unit and/or counseling patient:
[2021-02-10] MEDS: amLODIPine 5 MG TABLET PO SCH (08:13)
--- NOTE | 2021-02-10 08:58 | XRay Report ---
INDICATION: Follow-up of small bowel obstruction TECHNIQUE: Supine and upright abdomen. COMPARISON: Previous examinations dated 02/08/2021 FINDINGS:There is gas and fecal material throughout the colon. No dilated gas-filled small bowel. Bowel gas pattern is nonspecific and nonobstructive. There is a surgical drain in the pelvis. There is postsurgical pneumoperitoneum. No biliary or portal venous gas. No pneumatosis. IMPRESSION: 1. Nonobstructive and nonspecific bowel gas pattern 2. Pneumoperitoneum, probably postsurgical Interpreted and Authenticated by: Ad Lazo 02/10/21
[2021-02-10] MEDS: OPIUM/BELLADONNA ALKALOIDS 60 MG SUPP.RECT PR PRN ×3 (13:01→21:18)
[2021-02-10] MEDS: 0.9 % SODIUM CHLORIDE 1,000 ML IV SCH ×2 (13:29→18:40)
[2021-02-10] MEDS: hydrOXYzine 25 MG TABLET PO PRN ×2 (13:33→17:32)
--- NOTE | 2021-02-10 14:14 | General Surgery Progress Note ---
SUBJECTIVE Subjective Patient information: Note initiated : 02/10/21 at 2:13 pm Service Date, if different from initiated Date: [] Patient: Brannon Frances 65 y/o M admitted on 02/08/21 for Hematuria. Chief Complaint: [] Principal diagnosis: Abdominal distention; adynamic ileus Interval history: Patient states that he feels much better. He started passing flatus last evening and has continued today. He does not have nausea. His pain is better controlled. Abdominal x-rays gas in the colon but no significant small bowel gas. White blood count 8.3, hemoglobin 9.2. Constitutional Vitals: Vital Signs Temp Pulse Resp BP Pulse Ox 98.9 F 94 H 18 133/85 94 02/10/21 11:41 02/10/21 11:41 02/10/21 11:41 02/10/21 11:41 02/10/21 11:41 Period Temp Pulse Resp BP Sys/Bean Pulse Ox Last 24 Hr 98.1 F-98.9 F 94-113 16-22 122-148/67-88 91-94 Intake and Output 02/10/21 02/10/21 02/10/21 05:59 13:59 21:59 Intake Total 200 1900 Output Total 1660 900 Balance -1460 1000 Intake & Output: Intake & Output 02/10/21 02/10/21 02/10/21 05:59 13:59 21:59 Intake Total 200 1900 Output Total 1660 900 Balance -1460 1000 Intake: IV 200 1100 Dextrose 5%-Ns IV Solution 1, 1000 000 ml @ 125 mls/hr IV .Q8H [facility] Rx#:[id number] Oral 800 Output: Gastric Drainage 100 Left Nare NG/OG 100 Drainage 10 Right Lower Abdomen 10 Urine Catheter Amount 1550 900 Other: Meal Breakfast Percent of Meal Consumed 100% Feeding Ability Independent Urine Appearance Clear Clear Small Blood Clots Small Blood Clots Uretheral (Melendez) Clear Urine Color [place] Uretheral (Melendez) Straw [place] Urine Odor Normal Normal Uretheral (Melendez) Normal Neck Neck exam: Present full ROM; Absent tenderness Respiratory Respiratory exam: Present normal respiratory exam and CTAB; Absent rales, rhonchi and wheezes Cardiovascular Cardiovascular exam: Present normal rate and rhythm, RRR, +S1 and +S2 GI/Abdominal GI/Abdominal exam: Present normal bowel sounds (Bowel sounds hyperactive) and soft (Abdominal wall is softer with much less tenderness) Extremities Exam Extremities exam: Present full ROM, normal inspection and neurovascular intact A/P Assessment and plan (1) Adynamic ileus: Status: Acute (2) Ruptured bladder with uroperitoneum: Status: Acute (3) Acute blood loss as cause of postoperative anemia: Status: Acute Narrative A/P Narrative: Continue present therapy Time Spent With Patient Time: Total time spent is greater than 50% in coordination of care (as documented) at patient's floor/unit and/or counseling patient:
[2021-02-10] MEDS ORDERED: ACETAMINOPHEN 1,000 MG/100 ML BAG IV ONE (21:18)
[2021-02-10] MEDS: ACETAMINOPHEN 1,000 MG/100 ML BAG IV PRN (21:19)
[2021-02-11] MEDS: HYDROmorphone 0.5 MG/0.5 ML SYRINGE IV PRN ×4 (00:11→18:43)
[2021-02-11] MEDS: METOCLOPRAMIDE 10 MG/2 ML VIAL IV SCH ×5 (00:32→23:33)
[2021-02-11] MEDS: 0.9 % SODIUM CHLORIDE 1,000 ML IV SCH ×6 (02:13→23:31)
[2021-02-11] MEDS: OPIUM/BELLADONNA ALKALOIDS 60 MG SUPP.RECT PR PRN ×3 (02:18→11:23)
[2021-02-11] MEDS: ceFAZolin 1 GM VIAL IV SCH ×3 (02:41→19:00)
[2021-02-11] MEDS: ACETAMINOPHEN 1,000 MG/100 ML BAG IV PRN (05:16)
[2021-02-11 06:35] LABS: Basophils # (Auto) 0.02 K/mcL (0.00-0.20); Basophils % (Auto) 0.3 % (0.0-2.0); Eosinophils # (Auto) 0.29 K/mcL (0.00-0.70); Eosinophils % (Auto) 3.9 % (0.0-7.0); Hematocrit 27.8 % (41.0-55.0); Hemoglobin 9.2 g/dL (13.5-16.5); Lymphocytes # (Auto) 2.06 K/mcL (1.50-4.80); Lymphocytes % (Auto) 27.9 % (15.0-49.0); Mean Cell Volume 90.8 fL (80.0-100.0); Mean Corpuscular HGB Conc 33.1 g/dL (31.0-36.0); Mean Platelet Volume 8.5 fL (7.4-10.4); Monocytes # (Auto) 0.77 K/mcL (0.10-0.90); Monocytes % (Auto) 10.4 % (1.0-12.0); Neutrophils % (Auto) 57.5 % (38.0-78.0); Platelet Count 230 K/mcL (140-440); RBC 3.06 M/mcL (4.50-5.90); Red Cell Distribution Width 13.4 % (11.5-14.5); WBC 7.4 K/mcL (4.5-11.0)
[2021-02-11] MEDS: 0.9 % SODIUM CHLORIDE 10 ML SYRINGE IV SCH ×3 (06:49→22:19)
--- NOTE | 2021-02-11 07:08 | XRay Report ---
INDICATION: Follow-up of small bowel obstruction TECHNIQUE: Supine and upright abdomen. COMPARISON: Previous examinations dated 02/10/2021, 02/08/2021 FINDINGS:There continues to be gas within the colon. There is now gas filled small bowel with mild dilatation. Small bowel measures 3.5 cm in cross-sectional diameter. There are scattered air-fluid levels. Small bowel gas is new since 02/10/2021. Developing recurrent small bowel obstruction is possible. Continued follow-up recommended. There is persistent pneumoperitoneum. This is presumably secondary to previous surgery. IMPRESSION: 1. Prominent gas-filled small bowel. Recurrent small bowel obstruction is possible and continued follow-up recommended 2. Pneumoperitoneum most likely secondary to previous surgery Interpreted and Authenticated by: Ad Lazo 02/11/21
[2021-02-11] MEDS: amLODIPine 5 MG TABLET PO SCH (08:24)
--- NOTE | 2021-02-11 10:19 | General Surgery Progress Note ---
SUBJECTIVE Subjective Patient information: Note initiated : 02/11/21 at 10:15 am Service Date, if different from initiated Date: [] Patient: Brannon Frances 65 y/o M admitted on 02/08/21 for Hematuria. Chief Complaint: [] Principal diagnosis: Abdominal distention; adynamic ileus Interval history: Patient doing well still passing gas and comfortable with decreased bladder spasms on B AND O suppository Having some abdominal pains but likely initial ileus resolution based as little nausea noted and tolerating p.o. adequately Constitutional Vitals: Vital Signs Temp Pulse Resp BP Pulse Ox 98.7 F 95 H 18 140/81 94 02/11/21 06:54 02/11/21 06:54 02/11/21 07:23 02/11/21 06:54 02/11/21 06:54 Period Temp Pulse Resp BP Sys/Bean Pulse Ox Last 24 Hr 98.0 F-98.9 F 92-106 16-20 112-154/69-87 92-94 Intake and Output 02/10/21 02/11/21 02/11/21 21:59 05:59 13:59 Intake Total 1907 2334 466 Output Total 1600 1310 Balance 307 1024 466 Weight 208 lb 1.6 oz Intake & Output: Intake & Output 02/10/21 02/11/21 02/11/21 21:59 05:59 13:59 Intake Total 1907 2334 466 Output Total 1600 1310 Balance 307 1024 466 Weight 208 lb 1.6 oz Intake: IV 1907 1734 466 Sodium Chloride 0.9% 1,000 ml @ 907 1534 466 175 mls/hr IV .Q5H43M [facility] Rx#: [id number] Dextrose 5%-Ns IV Solution 1, 1000 000 ml @ 125 mls/hr IV .Q8H [facility] Rx#:[id number] Oral 600 Output: Drainage 10 Right Lower Abdomen 10 Urine Catheter Amount 1600 1300 Other: Urine Appearance Small Blood Clots Clear Clear Uretheral (Melendez) Clear Clear Urine Color [place] Dark Yellow Straw Uretheral (Melendez) Dark Yellow Dark Yellow Straw Urine Odor Normal Normal Uretheral (Melendez) Normal Normal Additional findings Additional findings: Nontoxic comfortable and afebrile vital signs stable HEENT within normal limits Abdomen softer with incision normal GEOFFREY draining little Catheter clear urine noted A/P Narrative A/P Narrative: Assessment: Continues to improve postop with resolving ileus and clearing urine for stable labs this morning Minimal GEOFFREY drainage noted Plan: Discontinue Obi-Andrea and change Melendez to 20 Hebrew two-way for comfort and less penile irritation as we will likely need to be in place for approximately 2 weeks Advance to full liquid diet diet trial and defer to Dr. Miller in general surgery regarding constipation issues and management as well as ileus management Urology coverage tomorrow will twisting frame changer to Dr. Forbes in my absence but patient likely able to be discharged when approved with general surgery monitoring for ileus Time Spent With Patient Time: Total time spent is greater than 50% in coordination of care (as documented) at patient's floor/unit and/or counseling patient:
--- NOTE | 2021-02-11 12:36 | General Surgery Progress Note ---
SUBJECTIVE Subjective Patient information: Note initiated : 02/11/21 at 12:33 pm Service Date, if different from initiated Date: [] Patient: Brannon Frances 65 y/o M admitted on 02/08/21 for Hematuria. Chief Complaint: [] Principal diagnosis: Abdominal distention; adynamic ileus Interval history: Patient states that he feels much better. He has had passage of copious amounts of flatus. His nausea has resolved. White blood count 7.4, hemoglobin 9.2. Abdominal x-rays show increased small bowel and colon gas compatible with adynamic ileus. There is a moderate amount of stool in the right colon. Constitutional Vitals: Vital Signs Temp Pulse Resp BP Pulse Ox 98.8 F 92 H 18 150/87 95 02/11/21 11:36 02/11/21 11:36 02/11/21 11:36 02/11/21 11:36 02/11/21 11:36 Period Temp Pulse Resp BP Sys/Bean Pulse Ox Last 24 Hr 98.0 F-98.9 F 92-106 16-20 112-154/69-87 92-95 Intake and Output 02/10/21 02/11/21 02/11/21 21:59 05:59 13:59 Intake Total 1907 2334 466 Output Total 1600 1310 1600 Balance 307 1024 -1134 Weight 208 lb 1.6 oz Intake & Output: Intake & Output 02/10/21 02/11/21 02/11/21 21:59 05:59 13:59 Intake Total 1907 2334 466 Output Total 1600 1310 1600 Balance 307 1024 -1134 Weight 208 lb 1.6 oz Intake: IV 1907 1734 466 Sodium Chloride 0.9% 1,000 ml @ 907 1534 466 175 mls/hr IV .Q5H43M [facility] Rx#: [id number] Dextrose 5%-Ns IV Solution 1, 1000 000 ml @ 125 mls/hr IV .Q8H [facility] Rx#:[id number] Oral 600 Output: Drainage 10 Right Lower Abdomen 10 Urine Catheter Amount 1600 1300 1600 Other: Urine Appearance Small Blood Clots Clear Clear Uretheral (Melendez) Clear Clear Urine Color [place] Dark Yellow [place] Uretheral (Melendez) Dark Yellow Dark Yellow Straw Urine Odor Normal Normal Uretheral (Melendez) Normal Normal Neck Neck exam: Present full ROM; Absent tenderness Respiratory Respiratory exam: Present normal respiratory exam and CTAB; Absent rales, rhonchi and wheezes GI/Abdominal GI/Abdominal exam: Present normal bowel sounds (Bowel sounds hyperactive) and soft (Abdominal wall is softer with much less tenderness) Extremities Exam Extremities exam: Present full ROM, normal inspection and neurovascular intact Neurological Exam Neurological exam: Present alert and oriented X3 A/P Assessment and plan (1) Adynamic ileus: Status: Acute (2) Ruptured bladder with uroperitoneum: Status: Acute (3) Acute blood loss as cause of postoperative anemia: Status: Acute Narrative A/P Narrative: Patient is clinically stable. He will be given milk of magnesia 3 tablespoons x 2 doses for constipation. Anticipate him to be stable for discharge tomorrow. Time Spent With Patient Time: Total time spent is greater than 50% in coordination of care (as documented) at patient's floor/unit and/or counseling patient:
[2021-02-11] MEDS: MAGNESIUM HYDROXIDE 30 ML ORAL.SUSP PO SCH ×3 (15:07→23:33)
--- NOTE | 2021-02-11 20:07 | General Surgery Progress Note ---
SUBJECTIVE Subjective Patient information: Note initiated : 02/11/21 at 8:05 pm Service Date, if different from initiated Date: [] Patient: Brannon Frances 65 y/o M admitted on 02/08/21 for Hematuria. Chief Complaint: [] Principal diagnosis: Abdominal distention; adynamic ileus Interval history: Doing well with no catheter and continues to pass gas Small blood clot but passed easily and now urine clear Constitutional Vitals: Vital Signs Temp Pulse Resp BP Pulse Ox 98.8 F 96 H 16 153/85 96 02/11/21 15:26 02/11/21 15:26 02/11/21 15:26 02/11/21 15:26 02/11/21 15:26 Period Temp Pulse Resp BP Sys/Bean Pulse Ox Last 24 Hr 98.0 F-98.8 F 92-101 16-18 112-153/69-87 93-96 Intake and Output 02/11/21 02/11/21 02/11/21 05:59 13:59 21:59 Intake Total 2334 466 50 Output Total 1310 1600 850 Balance 1024 -1134 -800 Intake & Output: Intake & Output 02/11/21 02/11/21 02/11/21 05:59 13:59 21:59 Intake Total 2334 466 50 Output Total 1310 1600 850 Balance 1024 -1134 -800 Intake: IV 1734 466 50 Sodium Chloride 0.9% 1,000 ml @ 1534 466 50 175 mls/hr IV .[facility]5H[facility]M [facility] Rx#: [id number] Oral 600 Output: Drainage 10 Right Lower Abdomen 10 Urine Catheter Amount 1300 1600 850 Other: Meal Lunch Percent of Meal Consumed 100% Feeding Ability Independent Urine Appearance Clear Clear Clear Uretheral (Melendez) Clear Clear Urine Color Dark Yellow [place] Uretheral (Melendez) Dark Yellow Dark Yellow Straw Urine Odor Normal Normal Uretheral (Melendez) Normal Additional findings Additional findings: Nontoxic Abdomen softening and no drainage from GEOFFREY site Melendez catheter draining clear urine A/P Narrative A/P Narrative: Assessment: Doing well and will recheck labs in the morning Bladder spasms seem to be abating and hopefully can be managed with [facility] Weldon general surgery help and agree hopefully patient will be able to be discharged tomorrow Plan: Recheck labs in morning and plan discharge if continues to do well Would leave catheter in place for approximately 2 weeks Time Spent With Patient Time: Total time spent is greater than 50% in coordination of care (as documented) at patient's floor/unit and/or counseling patient:
[2021-02-12] MEDS: HYDROmorphone 0.5 MG/0.5 ML SYRINGE IV PRN ×2 (02:15→13:51)
[2021-02-12] MEDS: ceFAZolin 1 GM VIAL IV SCH (02:16)
[2021-02-12] MEDS: METOCLOPRAMIDE 10 MG/2 ML VIAL IV SCH ×3 (05:05→18:34)
[2021-02-12] MEDS: 0.9 % SODIUM CHLORIDE 1,000 ML IV SCH (05:05)
[2021-02-12] MEDS: 0.9 % SODIUM CHLORIDE 10 ML SYRINGE IV SCH ×2 (05:06→13:51)
--- NOTE | 2021-02-12 06:23 | XRay Report ---
INDICATION: Follow-up of small bowel obstruction TECHNIQUE: Supine and upright abdomen. COMPARISON: Previous examinations dated 02/11/2021, 02/10/2021, 02/08/2021 FINDINGS:There is gas within small and large bowel. Small bowel remains dilated to approximately 4 cm in cross-sectional diameter. All gas pattern is essentially unchanged since 02/11/2021 Pneumoperitoneum is essentially unchanged. No biliary or portal venous gas. No pneumatosis. IMPRESSION: 1. Small and large bowel gas as above 2. No significant interval change since 02/11/2021 3. Pneumoperitoneum Interpreted and Authenticated by: Ad Lazo 02/12/21
[2021-02-12 06:42] LABS: Basophils # (Auto) 0.04 K/mcL (0.00-0.20); Basophils % (Auto) 0.5 % (0.0-2.0); Eosinophils # (Auto) 0.33 K/mcL (0.00-0.70); Eosinophils % (Auto) 4.3 % (0.0-7.0); Hematocrit 29.6 % (41.0-55.0); Lymphocytes # (Auto) 1.72 K/mcL (1.50-4.80); Lymphocytes % (Auto) 22.2 % (15.0-49.0); Mean Cell Volume 89.7 fL (80.0-100.0); Mean Corpuscular HGB Conc 33.8 g/dL (31.0-36.0); Mean Platelet Volume 8.5 fL (7.4-10.4); Monocytes # (Auto) 0.71 K/mcL (0.10-0.90); Monocytes % (Auto) 9.2 % (1.0-12.0); Neutrophils % (Auto) 63.8 % (38.0-78.0); Platelet Count 312 K/mcL (140-440); Red Cell Distribution Width 13.2 % (11.5-14.5); WBC 7.8 K/mcL (4.5-11.0)
[2021-02-12 07:09] LABS: Blood Urea Nitrogen 11 mg/dL (8-23); Calcium 9.3 mg/dL (8.6-10.4); Carbon Dioxide 28 mmol/L (22-30); Chloride 99 mmol/L (96-108); Glomerular Filtration Rate 90; Glucose 118 mg/dL (70-105)
--- NOTE | 2021-02-12 07:57 | General Surgery Progress Note ---
SUBJECTIVE Subjective Patient information: Note initiated : 02/12/21 at 7:52 am Service Date, if different from initiated Date: [] Patient: Brannon Frances 65 y/o M admitted on 02/08/21 for Hematuria. Chief Complaint: [] Principal diagnosis: Abdominal distention; adynamic ileus Interval history: Patient comfortable but started to have diarrhea and bladder spasms markedly reduced with belladonna and opium and catheter change Patient had flat and upright abdomen today which reveals some persistent ileus and pneumoperitoneum Urine is remained clear overnight and patient has been taking full liquid diet well Constitutional Vitals: Vital Signs Temp Pulse Resp BP Pulse Ox 98.2 F 94 H 18 138/81 95 02/12/21 07:45 02/12/21 07:45 02/12/21 07:45 02/12/21 07:45 02/12/21 07:45 Period Temp Pulse Resp BP Sys/Bean Pulse Ox Last 24 Hr 98.0 F-98.8 F 92-97 16-18 124-153/74-87 92-96 Intake and Output 02/11/21 02/12/21 02/12/21 21:59 05:59 13:59 Intake Total 50 800 Output Total 1650 200 Balance -1600 -200 800 Weight 208 lb 1.6 oz Intake & Output: Intake & Output 02/11/21 02/12/21 02/12/21 21:59 05:59 13:59 Intake Total 50 800 Output Total 1650 200 Balance -1600 -200 800 Weight 208 lb 1.6 oz Intake: IV 50 Sodium Chloride 0.9% 1,000 ml @ 50 175 mls/hr IV .Q5H43M [facility] Rx#: [id number] Oral 800 Output: Urine Catheter Amount 1650 200 Other: Urine Appearance Clear Clear Uretheral (Melendez) Clear Urine Color [place] Dark Yellow Uretheral (Melendez) [place] Urine Odor Normal Uretheral (Melendez) Normal Stool Size Moderate Stool Color Brown Stool Consistency Loose Additional findings Additional findings: Patient nontoxic but still comfortable and anxious with abdominal distention and some intermittent abdominal pains Respiratory excursion normal Abdomen nontoxic with incision healing nicely and GEOFFREY drain dry site Melendez catheter draining clear urine A/P Narrative A/P Narrative: Assessment: Bladder doing well and persistent partial ileus still some concern will have general surgery evaluate We will discontinue belladonna and opium suppository to see if this might be continuing some of his abdominal symptoms and will discontinue Ancef as potential problems as well with his diarrhea Plan: Continue present management and bowel management as per general surgery and home whenever general surgery approves In my absence Dr. Forbes cover urology Would leave catheter in place for 2 weeks to assure adequate bladder closure and void have cystogram to assure no leaks prior to this continuing Melendez catheter Time Spent With Patient Time: Total time spent is greater than 50% in coordination of care (as documented) at patient's floor/unit and/or counseling patient:
[2021-02-12] MEDS ORDERED: MIRABEGRON 25 MG PO SCH (09:00)
[2021-02-12] MEDS: amLODIPine 5 MG TABLET PO SCH (11:39)
--- NOTE | 2021-02-12 14:32 | Non-GYN Cytology Report ---
Non Educational Interpreter Cytology NG Diagnosis URINE, CATHETERIZED: --- NO ATYPICAL OR MALIGNANT CELLS IDENTIFIED. (ACP:adj) NG Micro Description Examination of the urine thinprep specimen reveals abundant degenerated red blood cells/acellular debris with a few lymphocytes and neutrophils. Scattered degenerated mononuclear cells are noted. No atypical or malignant cells are identified. (ACP:adj) NG Gross Description Received 45 mL dark red fluid. Electronically Signed Dalton Sanchez MD, FCAP Electronically Signed 02/12/2021 14:31
--- NOTE | 2021-02-12 17:12 | Discharge Summary ---
Discharge Provider Provider Patient information: Note initiated : 02/12/21 at 5:09 pm Service Date, if different from initiated Date: [] Patient: Brannon Frances 65 y/o M admitted on 02/08/21 for Hematuria. Chief Complaint: [] Date of admission: 02/08/21 14:08 Discharge date: 02/12/21 Primary care physician: Preston Rangel Consults: 02/08/21 Consult to Physician [CONS] Stat Comment: Consulting Provider: Madan Donaldson Reason For Exam: Physician to Consult 02/09/21 07:45 Consult to Physician [CONS] Routine Comment: post abd distention -sp bladder rupture Consulting Provider: Flores Miller Reason For Exam: Physician to Consult COURSE Hospital Course Hospital course: post op Discharge diagnosis: ruptured bladder Time Spent with Patient Time attestation: Total time spent providing and/or coordinating discharge services: Physical Examination Vital Signs Vital signs: Temp Pulse Resp BP Pulse Ox 98.1 F 89 20 136/74 96 02/12/21 12:00 02/12/21 12:00 02/12/21 12:00 02/12/21 12:00 02/12/21 12:00 Discharge Plan Patient/Caregiver Discharge Instructions Activity: increase activity as tolerated and return to work once cleared by your PCP/specialist Diet: Regular Diet Prescriptions: New Myrbetriq 25 mg tablet extended release 24 hr 25 mg PO Q24H Qty: 14 RF: 0 tramadol-acetaminophen 37.5-325 mg tablet 1 tab PO BID PRN (Reason: pain) Qty: 14 RF: 0 Continued amlodipine 5 mg tablet 5 mg PO QDAY Qty: 90 RF: 2 olmesartan [Benicar] 20 mg tablet 20 mg PO QDAY Qty: 90 RF: 2 multivitamin tablet 1 tab-cap PO QDAY RF: 0 dicyclomine 20 mg Tablet 20 mg PO QDAY RF: 0 nortriptyline 10 mg Capsule 10 mg PO QDAY RF: 0 naproxen sodium [Aleve] 220 mg Tablet 220 mg PO BID RF: 0 allopurinol 300 mg tablet 300 mg PO BID RF: 0 ascorbic acid (vitamin C) 1,000 mg Tablet 1,000 mg PO QDAY RF: 0 Follow Up Plan Patient Disposition: Home, Self-Care Prognosis: Good Discharge Orders: Discharge Order (Routine); Ordered 02/12/21 Ordered By: Terrence Goodland Pending Pending Pending: Resuscitation Status Full Code Diet Full Liquid Diet Start Sun Feb 11 101 Hydrocodone Bitart/Acetaminophen (Hydrocodone/Apap 5/325mg Tablet) 0 tab PO Q4HP PRN; Protocol PRN Reason: Per Pain Protocol Last Admin: 02/08/21 16:35 Dose: 2 tab Documented by: RUTH Amlodipine Besylate (Amlodipine 5 Mg Tablet) 5 mg PO QDAY SOFY Last Admin: 02/12/21 11:39 Dose: 5 mg Documented by: Admin: 02/11/21 08:24 Dose: 5 mg Documented by: Admin: 02/10/21 08:13 Dose: 5 mg Documented by: YAZMIN Benzocaine (Benzocaine 1 [place] Bottle) 1 spray TOPICAL PRN PRN PRN Reason: Pain Last Admin: 02/09/21 03:45 Dose: 1 spray Documented by: Admin: 02/08/21 22:18 Dose: 1 spray Documented by: PASCALE Hydromorphone HCl (Hydromorphone 0.5 Mg/0.5 Ml Syringe) 0.5 mg IV Q4HP PRN; Protocol PRN Reason: Per Pain Protocol Last Admin: 02/12/21 13:51 Dose: 0.5 mg Documented by: Admin: 02/12/21 02:15 Dose: 0.5 mg Documented by: Admin: 02/11/21 18:43 Dose: 0.5 mg Documented by: Admin: 02/11/21 09:56 Dose: 0.5 mg Documented by: Admin: 02/11/21 06:09 Dose: 0.5 mg Documented by: Admin: 02/11/21 00:11 Dose: 0.5 mg Documented by: Admin: 02/10/21 18:40 Dose: 0.5 mg Documented by: JORGE A Admin: 02/10/21 06:26 Dose: 0.5 mg Documented by: Admin: 02/09/21 15:05 Dose: 0.5 mg Documented by: Admin: 02/09/21 08:21 Dose: 0.5 mg Documented by: YAZMIN Hydroxyzine HCl (Hydroxyzine 25 Mg Tablet) 25 mg PO Q4HP PRN PRN Reason: Anxiety Last Admin: 02/10/21 17:32 Dose: 25 mg Documented by: Admin: 02/10/21 13:33 Dose: 25 mg Documented by: YAZMIN Acetaminophen (Ofirmev) 1,000 mg in 100 mls @ 200 mls/hr IV Q6HP PRN; Protocol PRN Reason: PAIN/FEVER > 101 Last Infusion: 02/11/21 05:46 Dose: 200 mls/hr Documented by: JORGE A Admin: 02/11/21 05:16 Dose: 200 mls/hr Documented by: JORGE A Infusion: 02/10/21 22:00 Dose: 200 mls/hr Documented by: JORGE A Admin: 02/10/21 21:19 Dose: 200 mls/hr Documented by: JUJU Metoclopramide HCl (Metoclopramide 10 Mg/2 Ml Vial) 10 mg IV Q6 SOFY Last Admin: 02/12/21 13:41 Dose: Not Given Documented by: [email or web address] Admin: 02/12/21 05:05 Dose: Not Given Documented by: JORGE A Admin: 02/11/21 23:33 Dose: 10 mg Documented by: Admin: 02/11/21 17:40 Dose: 10 mg Documented by: Admin: 02/11/21 11:23 Dose: 10 mg Documented by: Admin: 02/11/21 06:48 Dose: 10 mg Documented by: Admin: 02/11/21 00:32 Dose: 10 mg Documented by: Admin: 02/10/21 17:32 Dose: 10 mg Documented by: Admin: 02/10/21 11:39 Dose: 10 mg Documented by: Admin: 02/10/21 05:05 Dose: 10 mg Documented by: Admin: 02/09/21 23:25 Dose: 10 mg Documented by: Admin: 02/09/21 17:21 Dose: 10 mg Documented by: Admin: 02/09/21 11:31 Dose: 10 mg Documented by: YAZMIN Nicotine Polacrilex (4 Mg Lozenge) 1 dose PO Q2-4HP PRN PRN Reason: Nicotine Cravings Last Admin: 02/11/21 02:17 Dose: 1 dose Documented by: JORGE A Admin: 02/10/21 21:59 Dose: 1 dose Documented by: Admin: 02/10/21 17:34 Dose: 1 dose Documented by: Admin: 02/10/21 13:33 Dose: 1 dose Documented by: Admin: 02/10/21 05:42 Dose: 1 dose Documented by: Admin: 02/09/21 20:44 Dose: 1 dose Documented by: Admin: 02/09/21 13:39 Dose: 1 dose Documented by: YAZMIN Sodium Chloride (0.9 % Sodium Chloride 10 Ml Syringe) 10 ml IV Q8 [facility] Admin: 02/12/21 13:51 Dose: 10 ml Documented by: Admin: 02/12/21 05:06 Dose: 10 ml Documented by: JORGE A Admin: 02/11/21 22:19 Dose: 10 ml Documented by: Admin: 02/11/21 14:04 Dose: 10 ml Documented by: Admin: 02/11/21 06:49 Dose: 10 ml Documented by: Admin: 02/10/21 21:21 Dose: Not Given Documented by: Admin: 02/10/21 13:39 Dose: 10 ml Documented by: Admin: 02/10/21 05:05 Dose: 10 ml Documented by: Admin: 02/09/21 20:44 Dose: Not Given Documented by: Admin: 02/09/21 13:05 Dose: 10 ml Documented by: Admin: 02/09/21 04:41 Dose: 10 ml Documented by: Admin: 02/08/21 20:52 Dose: Not Given Documented by: [facility] [place] Summary 02/12/21 04:07 Shift Summary by Umair Carlos Diagnosis: Gross Hematuria, open Bladder repair Orientation: A&O able to make needs known Oxygen/Airway needs: RA Ambulation status: Up with standby assist, using FWW Voiding: [place] cath patent, draining clear yellow urine IV access: LAC and Lt. Hand-SL Pain: Medicated x2 with iv 0.5 dilaudid with effective results Wounds: Midline incision with dermabond Discharge plans: TBD [place]: VSS, pt wearing SCD. Pt. had 5-6 bowel movement during shift, large- small in size, brown loose stools noted. Initialized on 02/12/21 04:07 - END OF NOTE
== END 2021-02-12 19:34 | disposition home or self-care (01) | DRG 908 ==
LOC: ED 08:45 → SUR 10:20 → MEDSUR 15:28
PROVIDERS: ADMIT Urology; ATTEND Urology